=== PATIENT | female | born 1945 | race Caucasian/White ===

== ENCOUNTER 2018-10-26 08:49 | Inpatient (IN) | payer MEDICARE ==
[~2018-10-26] VITALS: Ht 170.2 cm; Wt 77.6 kg
[~2018-10-26 08:49] MED LIST: ATOR20TA37 PO; BACITRACIN 50,000 UNIT ONE; BUPIVACAINE/EPI 0.5% 1:200K ONE; CYCL-259 PO; ESTR1TAB17 PO; FAMO20TA37 PO; FURO-93 PO; HYDR25TA6 PO; LEVO75TA PO; LOSA50TA14 PO; MAGN400C PO; MULT1TAB60 PO; OXYC10TA6 PO; POTA20TA6 PO; THROMBIN (RECOMBINANT) 5,000 UNIT VIAL TP ONE; TRAZ-137 PO; ZIPR80CA2 PO
[2018-10-26] MEDS ORDERED: LACTATED RINGERS 1,000 ML IV SCH (09:17)
[2018-10-26] MEDS ORDERED: FENTANYL PF 250 MCG/5ML ONE (09:52)
[2018-10-26] MEDS ORDERED: MIDAZOLAM 1 MG/ML, 2ML ONE (09:52)
[2018-10-26] MEDS ORDERED: FENTANYL PF 100 MCG/2ML ONE ×3 (09:54→13:01)
[2018-10-26] MEDS ORDERED: PROPOFOL 100 ML ONE (10:00)
[2018-10-26] MEDS ORDERED: REMIFENTANIL 2 MG ONE (10:01)
[2018-10-26] MEDS ORDERED: LABETALOL 5MG/ML, 20ML IV PRN (11:00)
[2018-10-26] MEDS ORDERED: LORazepam 2 MG/ML, 1ML IVPush PRN (11:00)
[2018-10-26] MEDS ORDERED: PROMETHAZINE 25 MG/ML, 1ML IV PRN (11:00)
[2018-10-26] MEDS ORDERED: OXYcodone 5 MG/5 ML ORAL.SOL UDC PO PRN (11:00)
[2018-10-26] MEDS ORDERED: ONDANSETRON ODT 8 MG PO PRN (11:00)
[2018-10-26] MEDS ORDERED: hydrALAzine 20 MG/ML, 1ML IV PRN (11:00)
[2018-10-26] MEDS ORDERED: ONDANSETRON 2MG/ML, 2ML IV PRN (11:00)
[2018-10-26] MEDS ORDERED: LIDOCAINE 2% 100MG/5ML SYRINGE ONE (11:01)
[2018-10-26] MEDS ORDERED: SENNA/DOCUSATE TABLET PO PRN (12:30)
[2018-10-26] MEDS ORDERED: morphine SULFATE 10 MG/ML, 1ML IVPush PRN (12:30)
[2018-10-26] MEDS ORDERED: PHARMACY MAY ADJ FOR RENAL FX MC PRN (12:30)
[2018-10-26] MEDS ORDERED: METHOCARBAMOL 750 MG TABLET PO PRN (12:30)
[2018-10-26] MEDS ORDERED: NS + 20MEQ KCL 1,000 ML IV SCH (12:30)
[2018-10-26] MEDS ORDERED: ONDANSETRON 2MG/ML, 2ML IVPush PRN (12:30)
[2018-10-26] MEDS ORDERED: MAGNESIUM HYDROXIDE 8%, 30ML UDC PO PRN (12:30)
[2018-10-26] MEDS ORDERED: PROMETHAZINE 25 MG/ML, 1ML IM PRN (12:30)
[2018-10-26] MEDS ORDERED: DIPHENHYDRAMINE 50 MG/ML, 1ML IVPush PRN (12:30)
[2018-10-26] MEDS ORDERED: OXYcodone 5 MG/5 ML ORAL.SOL UDC ONE (12:47)
[2018-10-26] MEDS: FENTANYL PF 100 MCG/2ML IV PRN ×4 (12:49→13:13)
[2018-10-26] MEDS ORDERED: METHOCARBAMOL 750 MG TABLET ONE (13:01)
[2018-10-26] MEDS ORDERED: HYDROmorphone 2 MG/ML, 1ML ONE (13:02)
[2018-10-26] MEDS: HYDROmorphone 2 MG/ML, 1ML IVPush PRN ×2 (13:05→13:11)
[2018-10-26] MEDS ORDERED: DIAZEPAM 5 MG/ML, 2ML ONE (13:19)
[2018-10-26] MEDS: DIAZEPAM 5 MG/ML, 2ML IVPush PRN ×2 (13:24→13:45)
[2018-10-26 14:00] VITALS: BP 110/71
[2018-10-26] MEDS ORDERED: ONDANSETRON 2MG/ML, 2ML ONE (14:18)
[2018-10-26] MEDS ORDERED: GLYCOPYRROLATE 0.2MG/1ML, 5ML ONE (14:18)
[2018-10-26] MEDS ORDERED: CEFAZOLIN 1,000 MG ONE (14:18)
[2018-10-26] MEDS ORDERED: PROPOFOL 10 MG/ML, 20ML ONE (14:18)
[2018-10-26] MEDS ORDERED: SUCCINYLCHOLINE 20 MG/ML, 10ML ONE (14:18)
[2018-10-26] MEDS ORDERED: DEXAMETHASONE 4 MG/ML, 1ML ONE (14:18)
[2018-10-26] MEDS ORDERED: ROCURONIUM 10MG/ML,5ML ONE (14:18)
[2018-10-26] MEDS ORDERED: NEOSTIGMINE 1 MG/ML, 10ML ONE (14:18)
[2018-10-26 15:00] VITALS: BP 110/71
[2018-10-26] MEDS: CYCLOBENZAPRINE 10 MG TABLET PO SCH ×2 (15:50→22:18)
[2018-10-26] MEDS: OXYcodone IR 5MG TABLET PO SCH ×2 (18:18→22:19)
[2018-10-26 19:25] VITALS: BP 105/68
[2018-10-26] MEDS ORDERED: TRAZODONE 100MG TABLET PO SCH (21:00)
[2018-10-26] MEDS ORDERED: ATORVASTATIN 20 MG TABLET PO SCH (21:00)
[2018-10-26] MEDS: SODIUM CHLORIDE FLUSH 10ML SYR IVF SCH (21:00)
[2018-10-26] MEDS: FAMOTIDINE 20 MG TABLET PO SCH (22:18)
[2018-10-26] MEDS: CEFAZOLIN PMX 1GM/50ML 50 ML IVPB SCH (22:18)
[2018-10-26] MEDS: ZIPRASIDONE 40MG CAPSULE PO SCH (22:45)
[2018-10-27] VITALS (7 sets, daily range): BP systolic 75–108; BP diastolic 40–72
[2018-10-27] MEDS: CEFAZOLIN PMX 1GM/50ML 50 ML IVPB SCH (05:53)
[2018-10-27] MEDS ORDERED: LEVOTHYROXINE 75 MCG TABLET PO SCH (06:00)
[2018-10-27] MEDS: OXYcodone IR 5MG TABLET PO SCH (06:00)
[2018-10-27] MEDS ORDERED: FUROSEMIDE 20 MG TABLET PO SCH (09:00)
[2018-10-27] MEDS ORDERED: HYDROCHLOROTHIAZIDE 25 MG TABLET PO SCH (09:00)
[2018-10-27] MEDS ORDERED: ESTRADIOL 1 MG TABLET PO SCH (09:00)
[2018-10-27] MEDS ORDERED: LOSARTAN 50MG TABLET PO SCH (09:00)
[2018-10-27] MEDS ORDERED: ZIPRASIDONE 40MG CAPSULE PO SCH (09:00)
[2018-10-27] MEDS ORDERED: POTASSIUM CHLORIDE 20 MEQ TAB.ER.PRT PO SCH (09:00)
[2018-10-27] MEDS: SODIUM CHLORIDE FLUSH 10ML SYR IVF SCH (09:16)
[2018-10-27] MEDS: CYCLOBENZAPRINE 10 MG TABLET PO SCH ×2 (09:16→11:41)
[2018-10-27] MEDS: FAMOTIDINE 20 MG TABLET PO SCH (09:16)
[2018-10-27] MEDS: ZIPRASIDONE 40MG CAPSULE PO SCH (09:16)
[2018-10-27] MEDS ORDERED: OXYC5CAP2 PO (09:21)
[2018-10-27] MEDS ORDERED: SODIUM CHLORIDE 0.9% 1,000ML IVBOLUS ONE (10:00)
== END 2018-10-27 13:27 | disposition home or self-care (01) | DRG 472 ==
LOC: ORIP 08:49 → 4NE 14:41 → DCLOUNGE 10-27 13:21
PROVIDERS: ADMIT Neurological Surgery; ATTEND Neurological Surgery
PROC: 0RB30ZZ Excision of Cervical Vertebral Disc, Open Approach (ICD-10-PCS; 2018-10-26)
PROC: 4A11X4G Monitoring of Peripheral Nervous Electrical Activity, Intraoperative, External Approach (ICD-10-PCS; 2018-10-26)
PROC: 0RG10A0 Fusion of Cervical Vertebral Joint with Interbody Fusion Device, Anterior Approach, Anterior Column, Open Approach (ICD-10-PCS; principal; 2018-10-26 12:00)
DX: M50.11 Cervical disc disorder with radiculopathy, high cervical region (principal); G95.29 Other cord compression; M19.90 Unspecified osteoarthritis, unspecified site; G40.909 Epilepsy, unspecified, not intractable, without status epilepticus; F32.9 Major depressive disorder, single episode, unspecified; F41.9 Anxiety disorder, unspecified; F12.90 Cannabis use, unspecified, uncomplicated; M48.02 Spinal stenosis, cervical region; I10 Essential (primary) hypertension; R51 Headache; I25.2 Old myocardial infarction; Z90.49 Acquired absence of other specified parts of digestive tract; Z88.5 Allergy status to narcotic agent; Z88.0 Allergy status to penicillin; Z86.73 Personal history of transient ischemic attack (TIA), and cerebral infarction without residual deficits; Z90.710 Acquired absence of both cervix and uterus; Z87.891 Personal history of nicotine dependence
CPT/HCPCS: 72040; C1713; G0378; J0690; J1100; J1170; J2250; J2405; J2704; J2710; J3010; J3360; J3480; C1762; J0330; J7030; J7120